=== PATIENT | male | born 1950 | race Two or more races ===

== ENCOUNTER 2019-03-06 14:25 | Outpatient (CLI) | payer OTHER | END 2019-03-06 15:00 | disposition home or self-care (01) | LOC: LAB 14:25 | DX: R97.20 Elevated prostate specific antigen [PSA] (principal) ==

== ENCOUNTER → 2019-03-13 | Outpatient (CLI) | payer OTHER | END | disposition home or self-care (01) | LOC: SONOGRAMA 07:11 | DX: D29.1 Benign neoplasm of prostate (principal); R97.20 Elevated prostate specific antigen [PSA] ==